=== PATIENT | female | born 1950 ===

== ENCOUNTER 2023-04-28 11:48 | Emergency (ER) | payer OTHER ==
[~2023-04-28] VITALS: Ht 165.1 cm; Wt 65.9 kg
[2023-04-28 11:58] VITALS: BP 137/65; PULSE 87; RESP 18; TEMP 98.1
[2023-04-28] MEDS ORDERED: PEMB100V INJ (11:59)
== END 2023-04-28 12:52 | disposition left against medical advice (07) ==
LOC: EMS 11:48
DX: R07.81 Pleurodynia (principal); Z53.21 Procedure and treatment not carried out due to patient leaving prior to being seen by health care provider
CPT/HCPCS: 99281; Z7502